=== PATIENT | female | born 1950 | race Caucasian/White ===

== ENCOUNTER 2024-07-07 13:38 | Emergency (ER) | payer MEDICARE, SELFPAY ==
[2024-07-07 13:46] VITALS: BP 172/72
--- NOTE | 2024-07-07 14:14 | ED.GENMED ---
History of Present Illness
General
Chief Complaint: Fainting/Passed Out
Time Seen by Provider: 07/07/24 14:14
History of Present Illness
History of Present Illness:
TIME OF INITIAL ENCOUNTER: 2:15 PM
HPI: Prior to arrival today, the patient felt nauseated while at [employer] and then suddenly passed out. When she passed out, she struck the left side of her head on something and has a new headache. Family member at bedside states that she did pass
out this time last year. The patient feels as if she is 'dehydrated' related to chronic nausea and poor p.o. intake. She never had any chest pain or shortness of breath. She has no abdominal pain.
EXAM:
GENERAL: Well appearing in no distress
HEENT: Slightly dry oral mucosa
C-SPINE: No midline C-spine tenderness
CARDIOVASCULAR: No murmurs, normal heart rate, regular rhythm, No chest wall tenderness
PULMONARY: No respiratory distress, breath sounds are clear and equal
ABDOMEN: Soft with no peritoneal signs, no tenderness
NEUROLOGIC: Excellent strength all extremities, no coordination deficits
PSYCHIATRIC: Appropriate mental status, normal insight and judgement
EXTREMITIES: Nontender, no edema, moves all extremities equally
SKIN: No rash, no lesions
NUMBER AND COMPLEXITY OF PROBLEMS ADDRESSED AT THE ENCOUNTER
� Chronic conditions affecting care: Diabetes, has had syncopal events in the past, smoker
� Acute Exacerbation and/or Progression of Chronic Illness: This is an acute problem
� Differential Diagnosis includes: Vasovagal event, viral syndrome, dysrhythmia
AMOUNT AND/OR COMPLEXITY OF DATA TO BE REVIEWED AND ANALYZED
� I performed an independent evaluation of and my interpretation is:
EKG: Sinus 74, inferior T wave abnormality however the QRS and the T waves are concordant
CT: CT brain personally reviewed and agree with radiologist interpretation�I also informed patient's family of the 'old small right basal ganglia infarct and
X-rays:
Laboratory Studies: White count 7.6, hemoglobin 10.2, chemistries unremarkable
Other:
� Review of other/old records: The patient was seen here in 2016 related to dizziness
� Clinical information was obtained by an independent historian: I spoke to family at bedside
� Prescriptions/Medications Considered but not given:
� Further testing considered but not performed:
RISK OF COMPLICATIONS AND/OR MORBIDITY OR MORTALITY OF PATIENT MANAGEMENT
� Social determinants of health affecting care: Lives at home
� Discussion with other providers:
� Escalation of care including admission/observation vs risk of discharge considered: No clear indication for admission to the hospital
ANY OTHER UPDATES:
5 PM: I reassessed patient. The patient did have a few low blood pressure readings with systolics around the 100 but after IV fluids her blood pressure is now 120. She does feel somewhat improved. I suspect that the syncopal event was related to
dehydration/poor p.o. intake. She has been eating and drinking poorly rather chronically and has not seen other doctors related to her chronic nausea. I have given her the contact information for local GI
Phy Exam
Physical Exam
Physical Exam:
See HPI
Course
Orders/Labs/Results
Orders:
Orders
07/07/24 13:[address] [CT Head W/o Iv Contrast] Urgent
Comment:
Reason For Exam: Passed out
07/07/24 13:53
EKG [Electrocardiogram (*1)] Urgent
Reason for Study: Syncope
07/07/24 13:54
EKG- Treatment ONCE
07/07/24 14:15
Electrocardiogram (*1) Urgent
Reason for Study: Syncope
EKG- Treatment ONCE
07/07/24 14:19
0.9% Sodium Chloride 1000 ml [Nss] 1,000 ml IV BOLUS
07/07/24 14:40
Basic Metabolic Panel Urgent
Complete Blood Count/With Diff Urgent
Magnesium Urgent
Abnormal Lab Results
07/07/24
14:40
RBC 3.45 L 10^6/uL
(4.20-5.40)
Hgb 10.2 L g/dL
(12.0-16.0)
Hct 31.0 L %
(37.0-47.0)
MCHC 32.9 L g/dL
(33.0-37.0)
Glucose 114 H mg/dl
(70-99)
07/07/24 14:40
07/07/24 14:40
Vital Signs
Initial and Last Documented VS:
Initial Vital Signs
Temp Pulse Resp BP Pulse Ox
97.6 F 84 20 172/72 96
07/07/24 13:46 07/07/24 13:46 07/07/24 13:46 07/07/24 13:46 07/07/24 13:46
Last Documented Vital Signs
Temp Pulse Resp BP Pulse Ox
97.6 F 89 14 121/58 98
07/07/24 13:46 07/07/24 17:00 07/07/24 17:00 07/07/24 16:57 07/07/24 17:00
*Critical Care Note
Total Time (30-74mins, 75-104mins- exclusive of procedures): Not Applicable
ED Attending Note
-
Portions of this chart may have been created with voice recognition software.� Occasional wrong word or��sound alike� substitutions may have occurred due to the inherent limitations of voice recognition software.
Discharge Plan
Departure
Patient Disposition: Home (Routine Discharge)
Date of Disposition: 07/07/24
Time of Disposition: 17:01
Patient with high blood pressure during this ER visit?: Yes
Discharge Problem:
Nausea
Instructions: Syncope (Fainting) (DC), BLOOD PRESSURE
Prescriptions:
New
ondansetron 4 mg tablet,disintegrating
4 mg PO Q8H PRN (Reason: nausea and vomiting) Qty: 14 0RF
Referrals:
NONE,* [Family Provider] -
Wendy Haile, DO [Active] - Next open appointment
Activity Restrictions/Additional Instructions:
Your hemoglobin level is slightly low at 10.7. I recommend that you follow-up with GI such as Dr. Haile. I sent a prescription for Zofran ODT to your pharmacy.
CAT scan of the brain report:
'The ventricles are normal in size, configuration, and position for age. There is no intra- or extra-axial mass, hemorrhage, or fluid collection. 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 No suspicious areas of abnormal mass effect or attenuation
are noted. There is mild subcortical, deep, and periventricular white matter low-attenuation, compatible with changes of chronic small vessel ischemic disease. Visualized paranasal sinuses are free of mucosal disease. No depressed calvarial
fracture. Mild left frontal scalp swelling'.
Interventions
Interventions:
*Risk Screen - Suicide Last Done: 07/07/24 14:32
*General Assessment Last Done: 07/07/24 14:32
*Neglect/Abuse Screening Last Done: 07/07/24 14:32
*ED COVID-19 Vaccine History Last Done: 07/07/24 13:46
ED- Cardiac Assessment Last Done: 07/07/24 14:33
ED- Neurological Assessment Last Done: 07/07/24 14:33
Discharge Date and Time
Print Language: [place]
[2024-07-07 14:39] VITALS: BP 96/68
[2024-07-07] MEDS: NSS 1000 IV (14:39)
[2024-07-07 14:50] LABS: % Basophils 0.9 % (0-2); % Immature Granulocytes 0.5 % (0-0.5); % Lymphocytes 31.5 % (20.5-51.1); % Monocytes 5.9 % (1.7-9.3); % Neutrophils 59.2 % (42.2-75.2); Absolute Basophils 0.1 10^3/uL (0-0.2); Absolute Eosinophils 0.2 10^3/uL (0-0.7); Absolute Lymphocytes 2.4 10^3/uL (1.2-3.4); Absolute Monocytes 0.5 10^3/uL (0.1-0.6); Absolute Neutrophils 4.5 10^3/uL (1.4-6.5); Hemoglobin 10.2 g/dL (12.0-16.0); Mean Corp Hgb Conc. 32.9 g/dL (33.0-37.0); Mean Corpuscular Hgb 29.6 pg (27.0-31.0); Mean Corpuscular Volume 89.9 fL (81.0-99.0); Mean Platelet Volume 8.1 fL (7.4-10.4); Nucleated Red Blood Cells % 0 %; Platelet Count 373 10^3/uL (130-400); Red Blood Cell Count 3.45 10^6/uL (4.20-5.40); Red Cell Dist. Width 14.1 % (11.5-14.5); White Blood Cell Count 7.6 10^3/uL (4.8-10.8)
[2024-07-07 15:00] VITALS: BP 102/63
[2024-07-07 15:02] LABS: Blood Urea Nitrogen 17 mg/dl (7-17); Calcium 9.5 mg/dl (8.4-10.2); Carbon Dioxide 25 mmol/L (22-30); Chloride 106 mmol/L (98-107); Glucose 114 mg/dl (70-99); Magnesium 1.8 mg/dl (1.6-2.3); Potassium 4.5 mmol/L (3.5-5.1); Sodium 140 mmol/L (135-145); eGFR > 60.00
[2024-07-07 16:24] VITALS: BP 96/68
[2024-07-07 16:57] VITALS: BP 121/58
== END 2024-07-07 17:15 | disposition home or self-care (01) ==
LOC: EMR 13:38
PROVIDERS: EMERGENCY PHYSICIAN Emergency Medicine
DX: R11.0 Nausea (principal); R55 Syncope and collapse; E11.9 Type 2 diabetes mellitus without complications; F17.200 Nicotine dependence, unspecified, uncomplicated
CPT/HCPCS: 99284; 70450; 80048; 83735; 85025; 93005